=== PATIENT | female | born 1970 | race Caucasian/White ===

== ENCOUNTER 2017-08-23 13:16 | Emergency (ER) | payer OTHER ==
[~2017-08-23] VITALS: Ht 177.8 cm; Wt 59.0 kg
[~2017-08-23 13:16] MED LIST: MEDROLDOSEPACK PO; NORCO 5-325 TA1 EACH PO
[2017-08-23] MEDS ORDERED: EFFEXOR XR75 MG PO (13:30)
[2017-08-23] MEDS ORDERED: TRAMADOL 50 MG50 MG PO (13:30)
[2017-08-23] MEDS ORDERED: GABAPENTIN800 M1 PO (13:30)
[2017-08-23] MEDS ORDERED: TRAZODONE HCL50 MG PO (13:31)
[2017-08-23 13:37] LABS: URINE BILIRUBIN NEGATIVE (Negative); URINE BLOOD TRACE (Negative); URINE COLOR YELLOW; URINE GLUCOSE-RANDOM* NEGATIVE (Negative); URINE KETONES NEGATIVE (Negative); URINE NITRITE NEGATIVE (Negative); URINE PROTEIN (DIPSTICK) TRACE (Negative); URINE SPECIFIC GRAVITY 1.025 (1.003-1.035); URINE UROBILINOGEN 0.2 E.U./dl (0.2-1.0)
[2017-08-23 13:43] LABS: HEMATOCRIT 39.3 % (37.0-47.0); HEMOGLOBIN 13.3 gm/dL (12.0-15.0); MCHC 33.7 g/dL (28.0-37.0); RBC 4.42 mil/uL (4.20-5.00); RDW 14.3 % (10.5-14.5); WBC 11.3 thou/uL (4.0-11.0)
[2017-08-23 13:52] LABS: CALCIUM 9.2 mg/dL (8.5-10.1); CREATININE 0.9 mg/dL (0.6-1.0); POTASSIUM 4.1 mmol/L (3.5-5.1)
[2017-08-23] MEDS ORDERED: KEFLEX500 MG PO (14:29)
[2017-08-23] MEDS ORDERED: FLOMAX0.4 MG PO (14:29)
[2017-08-23] MEDS ORDERED: OXYCODONE HCL 55 MG PO (14:29)
[2017-08-23 14:42] VITALS: BP 152/94
== END 2017-08-23 14:43 | disposition home or self-care (01) ==
LOC: ER 13:16
PROVIDERS: Emergency Medicine
DX: N21.1 Calculus in urethra (principal); F32.9 Major depressive disorder, single episode, unspecified; F17.210 Nicotine dependence, cigarettes, uncomplicated